=== PATIENT | female | born 1995 | race Asian ===

== ENCOUNTER → 2019-02-02 14:01 | Outpatient (CLI) | payer MEDICAID, SELFPAY ==
[2019-02-02 18:28] LABS: Chlamydia Trachomatis by PCR Negative (Negative); Neisserai gonorrhoeae by PCR Negative (Negative); Probe Check PASS; Sample Adequacy Control PASS; Specimen Processing Control PASS
[2019-02-06 16:57] LABS: HPV HC, High Risk Negative (Negative); HPV Reflexed? YES, CHARGE PATIENT
== END ==
PROVIDERS: Visit Provider Obstetrics & Gynecology
DX: Z12.4 Encounter for screening for malignant neoplasm of cervix (principal); Z11.3 Encounter for screening for infections with a predominantly sexual mode of transmission
CPT/HCPCS: 87491; 87591; 87624; 88175; G0145

== ENCOUNTER → 2019-02-23 14:22 | Outpatient (CLI) | payer MEDICAID, SELFPAY ==
[2017-09-21 03:43] VITALS: BMI 21.6
[2019-02-23 16:35] LABS: Color, Urine Yellow (Yellow); Glucose, Dipstick Normal (Normal); Ketone-Dipstick Negative (Negative); Leukocyte Esterase-Dipstick 500 /ul (Negative); Nitrite-Dipstick Negative (Negative); Occult Blood-Urine Negative /ul (Negative); Protein-Dipstick Negative (Negative); Specific Gravity, Urine 1.005 (1.002-1.030); Urine Bilirubin Dipstick Negative (Negative); Urine Clarity Clear (Clear); Urine Urobilinogen Normal (Normal)
[2019-02-23 16:39] LABS: Absolute Lymphocyte Count 1.98 X10^3/ul (0.83-4.51); Absolute Neutrophil Count 5.8 X10^3/uL (2.0-7.7); Basophil# 0.03 X10^3/uL; Basophil% 0.4 % (0-1); Eosinophil# 0.13 X10^3/uL; Eosinophils% 1.6 % (0-5); Hematocrit 39.3 % (37-47); Hemoglobin 13.3 g/dl (12.0-15.0); Lymphocyte # 1.98 X10^3/ul (4.0); Lymphocyte % 23.7 % (19-41); Mean Corp Hgb Conc 33.8 g/gl (32-36); Mean Corpuscular Hgb 31.1 pg (27.0-32.0); Mean Platelet Vol. 9.4 fl (6.2-12.0); Monocyte# 0.45 X10^3/uL; Monocyte% 5.4 % (0-10); Neutrophil # 5.76 X10^3/uL (2.7-7.7); Neutrophil % 68.8 % (47-70); Platelet Count 227 K/mm3 (150-450); RBC Distribution Width CV 13.4 % (11.6-14.6); RBC Distribution Width SD 44.3 fl (35.1-43.9); Red Blood Count 4.27 M/mm3 (4.2-5.4); White Blood Count 8.4 K/mm3 (4.4-11.0)
[2019-02-23 16:45] LABS: POSITIVE COUNT NO; POSITIVE DIFFERENTIAL NO; POSITIVE MORPHOLOGY NO
[2019-02-23 16:48] LABS: Thyroid Stim Hormone (TSH) 2.67 uIU/mL (0.358-3.74)
[2019-02-23 16:56] LABS: Amphetamine Urine VISTA NEGATIVE (<1000 ng/mL); Barbiturate Urine VISTA NEGATIVE (< 200 ng/mL); Benzodiazepine Urine VISTA NEGATIVE (< 200 ng/mL); Cocaine Urine VISTA NEGATIVE (< 300 ng/mL); Ecstacy Urine VISTA NEGATIVE (< 500 ng/mL); Methadone Urine VISTA NEGATIVE (< 300 ng/mL); PCP Urine VISTA NEGATIVE (< 25 ng/mL); THC Urine VISTA NEGATIVE (< 50 ng/mL); Vista UDS pH Range 7
[2019-02-23 17:28] LABS: HIV - WCH Non-Reactive (Nonreactive)
[2019-02-25 11:09] LABS: HEPATITIS B SURFACE AG Negative (Negative); Hep C Antibodies <0.1 s/co ratio (0.0-0.9)
[2019-02-27 02:51] LABS: Prenatal RPR NONREACTIVE (NONREACTIVE)
== END ==
PROVIDERS: Visit Provider Obstetrics & Gynecology
DX: Z34.81 Encounter for supervision of other normal pregnancy, first trimester (principal)
CPT/HCPCS: 36415; 80307; 81002; 84443; 85025; 86703; 86762; 86803; 87077; 87086; 87088; 87186; 87340

== ENCOUNTER → 2019-06-09 13:54 | Outpatient (CLI) | payer MEDICAID, SELFPAY ==
[2017-09-21 03:43] VITALS: BMI 21.6
[2019-06-09 15:02] LABS: Hematocrit 36.4 % (37-47); Hemoglobin 12.2 g/dL (12.0-15.0); Mean Corp Hgb Conc 33.5 g/dL (32-36); Mean Corpuscular Hgb 32.4 pg (27.0-32.0); Mean Corpuscular Volume 96.8 fL (81-99); Mean Platelet Vol. 9.2 fl (6.2-12.0); Platelet Count 209 K/mm3 (150-450); RBC Distribution Width CV 12.2 % (11.6-14.6); RBC Distribution Width SD 43.3 fl (35.1-43.9); Red Blood Count 3.76 M/mm3 (4.2-5.4); White Blood Count 8.9 K/mm3 (4.4-11.0)
[2019-06-09 17:54] LABS: Glucose Challenge Gest 1H 50g 170 mg/dL (70-140)
== END ==
PROVIDERS: Visit Provider Obstetrics & Gynecology
DX: Z34.83 Encounter for supervision of other normal pregnancy, third trimester (principal)
CPT/HCPCS: 36415; 82950; 85027

== ENCOUNTER → 2019-06-15 06:41 | Outpatient (CLI) | payer MEDICAID, SELFPAY ==
[2019-06-15 07:40] LABS: Glucose GTT-Gestation. Fasting 76 mg/dL (<105)
[2019-06-15 10:25] LABS: Glucose GTT-Gestational 1 Hr 108 mg/dL (<190)
[2019-06-15 10:26] LABS: Glucose GTT-Gestational 2 Hr 103 mg/dL (<165)
[2019-06-15 11:25] LABS: Glucose GTT-Gestational 3 Hr 87 L (<145)
== END ==
PROVIDERS: Referring Provider Obstetrics & Gynecology; Visit Provider Obstetrics & Gynecology
DX: O24.912 Unspecified diabetes mellitus in pregnancy, second trimester (principal); Z3A.00 Weeks of gestation of pregnancy not specified
CPT/HCPCS: 36415; 82951; 82952

== ENCOUNTER 2019-06-24 12:57 | Emergency (ER) | payer MEDICAID, SELFPAY ==
[2019-06-24 13:00] VITALS: BP 110/72; PULSE 69; RESP 16; TEMP 36.9; O2SAT 98
--- NOTE | 2019-06-24 13:23 | EKG12_ITS ---
Test Reason : SYNCOPE Blood Pressure : / mmHG Vent. Rate : 060 BPM Atrial Rate : 060 BPM P-R Int : 146 ms QRS Dur : 084 ms QT Int : 410 ms P-R-T Axes : 038 067 017 degrees QTc Int : 410 ms Normal sinus rhythm Normal ECG Confirmed by YELENA GALAVIZ ([id number]), assignment editor OSWALD BRAN ([id number]) on 06/29/2019 2:05:51 PM Referred By: Sandrita Estrada Confirmed By:YELENA GALAVIZ
[2019-06-24 13:32] LABS: Absolute Lymphocyte Count 1.51 X10^3/uL (0.83-4.51); Absolute Neutrophil Count 5.7 X10^3/uL (2.0-7.7); Basophil# 0.06 X10^3/uL; Basophil% 0.7 % (0-1); Eosinophil# 0.13 X10^3/uL; Eosinophils% 1.6 % (0-5); Hematocrit 36.1 % (37-47); Hemoglobin 12.2 g/dL (12.0-15.0); Lymphocyte # 1.51 X10^3/ul (4.0); Lymphocyte % 18.3 % (19-41); Mean Corp Hgb Conc 33.8 g/dL (32-36); Mean Corpuscular Hgb 32.9 pg (27.0-32.0); Mean Corpuscular Volume 97.3 fL (81-99); Mean Platelet Vol. 9.3 fl (6.2-12.0); Monocyte# 0.71 X10^3/uL; Monocyte% 8.6 % (0-10); NRBC Flagged by Analyzer 0 % (0-5); Neutrophil # 5.69 X10^3/uL (2.7-7.7); Neutrophil % 69.1 % (47-70); Platelet Count 241 K/mm3 (150-450); RBC Distribution Width CV 12.3 % (11.6-14.6); RBC Distribution Width SD 42.9 fl (35.1-43.9); Red Blood Count 3.71 M/mm3 (4.2-5.4); White Blood Count 8.2 K/mm3 (4.4-11.0)
[2019-06-24 13:44] LABS: Anion Gap 6 (5-15); BUN 9 mg/dL (7-18); BUN/Creat Ratio 18.3 RATIO (10-20); Calcium,Total 8.4 mg/dL (8.5-10.1); Chloride 107 mmol/L (98-107); Creatinine, Serum 0.49 mg/dL (0.55-1.02); EST Glomerular Filtration Rate 161 mL/min (>60); Est Glom Filt Rate - Afr Amer 195 mL/min (>60); Estimated Creatinine Clearance 145.76 ml/min; Glucose 87 mg/dL (74-106); Potassium 3.2 mmol/L (3.5-5.1); Sodium Level 138 mmol/L (136-145)
--- NOTE | 2019-06-24 13:55 | ED.DCSUM_ITS ---
- ER Visit Summary Date of Service: 06/24/19 Chief Complaint: Near syncope History of Present Illness: The patient is a [address] Estrada. She is a G3, P2 at 31 weeks. She reports that she had been standing for a few minutes and became lightheaded. She actually fell to the ground. However, she denies loss of consciousness. She denies any preceding chest pain, shortness of breath, or abdominal pain. Patient denies any injury from the falls. She does not have any trauma to her head or headache. She denies any neck or back pain. She does not believe that she hit her abdomen. Physical Examination: Vitals: Stable. Afebrile. Neck: No vertebral tenderness. Full ROM without difficulty. Cleared by NEXUS criteria. Back: No vertebral tenderness. General: A&O x 3. NAD. Cardiovascular exam: Regular rate and rhythm, no murmur, rub or gallop. Respiratory exam: Chest nontender. No crepitus. Clear to auscultation bilaterally. No wheezes or stridor. Abdominal exam: Soft, nontender, nondistended, normal bowel sounds. No pain in RUQ or LUQ specifically. No peritoneal signs. Gravid uterus. Extremity: Atraumatic. No pain with range of motion. Test Results: EKG is sinus at 60 with normal intervals. CBC shows hematocrit of 36.1 lymphocytes of 18. Chem-7 shows potassium 3.2, calcium 8.4, creatinine 0.59. UA is negative. Emergency Department Course and Treatment: Patient had negative orthostatic v ital signs. heart tone was 128. Bedside ultrasound shows good movement and heartbeat. Treatment Plan: The patient was discussed with Dr. Figueroa. She denies any blow to the abdomen, abdominal pain, or vaginal bleeding. She will be discharged instructions to follow-up with Dr. Estrada as previously scheduled. Return to the emergency department or labor and delivery for abdominal pain, vaginal bleeding, or any other concerns. Disposition: To home in improved and stable condition. Impression: 1. Near syncope. 2. Third trimester . This note was generated with [employer] software. It may contain incorrect words, spelling, and punctuation that were not noted in review of the chart prior to signing ED Disposition - Plan for ED Patient: Disposition: Home or Assisted Living Instructions: DIZZINESS OR SYNCOPE (Fainting) DURING Referrals: Sandrita Estrada MD [STAFF PHYSICIAN] - 1-2 Days if not improving
[2019-06-24 13:59] LABS: Bacteria 0 SEEN /hpf (None Seen); Mucous, Urine 0 SEEN /hpf (<or=2+); Red Blood Cells-Urine 0 SEEN /hpf (0-5)
[2019-06-24 14:02] LABS: Color, Urine Yellow (Yellow); Glucose, Dipstick 50 mg/dl (Normal); Ketone-Dipstick Negative (Negative); Leukocyte Esterase-Dipstick 25 /ul (Negative); Nitrite-Dipstick Negative (Negative); Occult Blood-Urine Negative /ul (Negative); Protein-Dipstick Negative (Negative); Urine Bilirubin Dipstick Negative (Negative); Urine Clarity Clear (Clear); Urine Urobilinogen Normal (Normal)
[2019-06-24] MEDS: 0.9% Normal Saline 1,000 ML 1000 ML IV (14:02)
[2019-06-24 14:03] VITALS: BP 100/67; BP 104/67; BP 99/60; PULSE 61; PULSE 68; PULSE 74
[2019-06-24 14:11] LABS: Squamous Epithelial Cells - UA 0-5 SEEN /hpf (5-10); White Blood Cells 0-5 SEEN /hpf (0-5)
[2019-06-24 14:47] VITALS: BP 103/49; PULSE 62; RESP 16; O2SAT 98
[2019-06-24 15:23] VITALS: BP 103/49; PULSE 60; RESP 18; O2SAT 98
[2019-06-24 15:35] VITALS: BP 103/49; PULSE 58; RESP 18
== END 2019-06-24 15:36 | disposition home or self-care (01) ==
LOC: ED 13:30
PROVIDERS: Emergency Provider Emergency Medicine
DX: O99.89 Other specified diseases and conditions complicating pregnancy, childbirth and the puerperium (principal); R55 Syncope and collapse; Z3A.31 31 weeks gestation of pregnancy
CPT/HCPCS: 80048; 81001; 85025; 93005; 96360; 99285; J7030

== ENCOUNTER → 2019-07-27 13:56 | Outpatient (CLI) | payer MEDICAID, SELFPAY | PROVIDERS: Visit Provider Obstetrics & Gynecology | DX: Z36.85 Encounter for antenatal screening for Streptococcus B (principal) | CPT/HCPCS: 87077; 87081; 87186 ==

== ENCOUNTER 2019-08-15 20:35 | Inpatient (IN) | payer MEDICAID, SELFPAY ==
[2019-08-15] MEDS: Lactated Ringers 500 ML 999 ML IV (20:55)
[2019-08-15 20:59] VITALS: BMI 22.6
[2019-08-15 21:14] LABS: Absolute Lymphocyte Count 1.61 X10^3/uL (0.83-4.51); Absolute Neutrophil Count 8.6 X10^3/uL (2.0-7.7); Basophil# 0.06 X10^3/uL; Basophil% 0.5 % (0-1); Eosinophils% 1.7 % (0-5); Hematocrit 40.7 % (37-47); Lymphocyte # 1.61 X10^3/ul (4.0); Mean Corp Hgb Conc 34.4 g/dL (32-36); Mean Corpuscular Hgb 33.4 pg (27.0-32.0); Mean Corpuscular Volume 97.1 fL (81-99); Mean Platelet Vol. 9.3 fl (6.2-12.0); Monocyte# 0.99 X10^3/uL; Monocyte% 8.6 % (0-10); NRBC Flagged by Analyzer 0 % (0-5); Neutrophil # 8.55 X10^3/uL (2.7-7.7); Neutrophil % 74.4 % (47-70); Platelet Count 210 K/mm3 (150-450); RBC Distribution Width CV 12.8 % (11.6-14.6); RBC Distribution Width SD 45.7 fl (35.1-43.9); Red Blood Count 4.19 M/mm3 (4.2-5.4); White Blood Count 11.5 K/mm3 (4.4-11.0)
[2019-08-15] MEDS: Lactated Ringers 1,000 ML 200 ML IV (21:26)
[2019-08-15] MEDS: Oxytocin 30 units/NS 500 ml 30 UNITS/500 ML IV.SOLN 334 UNITS IV (21:39)
[2019-08-15] MEDS: 0.9% Saline Lock 10 ML Syringe IV (21:52)
[2019-08-15] MEDS: Ketorolac 30 MG/ML Syringe IV (21:52)
--- NOTE | 2019-08-15 22:04 | PCM.HPOB.BLA ---
History and Physical Date of Admission: 08/15/19 OB HISTORY AND PHYSICAL EXAMINATION History of this : 24 yo female Ab0 with EDC 08/22/2019 by Ultrasound, presents to Labor and Delivery in labor at 8 cm with BBOW. at 39 wk EGA care remarkable for : B positive Rubella immune GBS positive. 1.) ABNORMAL GLUCOLA, 170 normal 3 hr GTT 2.) ASCUS PAP NEG HPV SURGICAL HISTORY: 1. 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 Allergies: No Known Drug Allergies Medications: During - 28 mg-800 mcg tablet; 28 mg-800 mcg tablet Review of Systems: Painful contractions starting at 7 pm PHYSICAL EXAMINATION General Appearance: 24 yo female very uncomfortable w/ contractions Vital Signs: AF, VSS Lungs: breathing heavily through UCs Breasts: deferred Abdomen: gravid Pelvis: Adequate. Cervix: 8 cm/90/-1 AROM light meconium. Presentation: cephalic Size: AGA Movement: present Heart: category I tracing with contractions Impression /Plan: Intrauterine . 39 wk EGA Admitted in active labor. GBS positive. inadequate time for prophylaxis AROM light meconium. Peds and respiratory therapy called for delivery. H and P generated at time of patient admission Hermilo Estrada MD 08/15/19 2200
--- NOTE | 2019-08-15 22:12 | PCM.OPRPT ---
Vaginal Delivery Maternal Presentation: Active Labor 39 wk labor. Amniotic Membrane Rupture Type: Artificial Amniotic Fluid Description: Lightly stained meconium Final MARYANNE: 08/22/19 Final MARYANNE Source: US <20 weeks Gestational age: 39 Weeks and 0 Days [place] doctor who attended delivery (if requested by OB): Nancy Ulloa Date of Procedure: 08/15/19 Pre-Operative Diagnosis: 39 wk labor, precipitous Post-Operative Diagnosis: same Surgery/ Procedure Performed: Spontaneous Vaginal Delivery Type of Anesthesia: None Description of Procedure: of a foss viable male over lacerations. Head delivered OA No nuchal cord. Shoulders delivered easily. Infant to maternal abdomen with spontaneous vigorous cry. OP and nares bulb suctioned. Cord clamped times two and cut. PP exam 2nd deg laceration repaired to hemostatic and intact with 3-0 vicryl suture. Placenta delivered by spontaneous expulsion, expression. 3V normal appearing and intact with trailing membranes. EBL 300 cc Pt and infant tolerated delivery well. to recovery, stable condition Ray imer and needle counts correct times two. Presentation: Vertex Placental Delivery Description: Spontaneous, Expressed Placenta Disposition: [facility] Cord Vessel Description: 3 Vessels Cord Entanglement: None Estimated Blood Loss: 300 A gender: Male (1 minute): 8 (5 minute): 9 Episiotomy Description: None Laceration: Midline, Perineal Extension/lac, 2nd degree Medications given after delivery: IV Pitocin Complications: None
[2019-08-16] VITALS (11 sets, daily range): BP systolic 94–117; BP diastolic 52–72; PULSE 61–93; RESP 16–18; TEMP 36.6–37.5; O2SAT 98
[2019-08-16] MEDS: 0.9% Saline Lock 10 ML Syringe IV (00:09)
--- NOTE | 2019-08-16 02:00 | NURSING ---
0110-assist pt up to br since fundus to rt and 1+. ambulated well but slow. was able to void 300cc. pt stood at commode and communicated to dad that she was feeling dizzy, therefore assisted back onto commode and pt became limp. smelling salts used and pt responded. two nurses placed pt in wheel chair and then back into bed. bleeding stable. fundus now u-1, bleeding stable. pt responding appropriately with questions asked. instructed that pt not to get out of bed without nursing assistance. bp stable. 0141-called dr traylor made aware of pt becoming limp when up to br and smelling salts used with pt bp and bleeding stable. order received for cbc to be drawn this am. will continue to monitor pt.
[2019-08-16 05:35] LABS: Hematocrit 39.8 % (37-47); Hemoglobin 13.6 g/dL (12.0-15.0); Mean Corp Hgb Conc 34.2 g/dL (32-36); Mean Corpuscular Hgb 32.6 pg (27.0-32.0); Mean Corpuscular Volume 95.4 fL (81-99); Mean Platelet Vol. 9.2 fl (6.2-12.0); Platelet Count 200 K/mm3 (150-450); RBC Distribution Width CV 12.8 % (11.6-14.6); RBC Distribution Width SD 44.9 fl (35.1-43.9); Red Blood Count 4.17 M/mm3 (4.2-5.4); White Blood Count 15.7 K/mm3 (4.4-11.0)
--- NOTE | 2019-08-16 07:49 | PN.OBGYN_ITS ---
Subjective: PPD#1 Doing OK. This was her largest baby, over 7# and others 6# 4 oz, 6# 7 oz. Sore but manageable. Passed out last night, but no further issues. - Physical Exam General: Alert, Oriented x3, Cooperative, No apparent distress HEENT: Atraumatic, EOMI Neck: Supple Abdomen: Soft - Fundus firm NT at umbilicus Neurological: Cranial nerves II-XII grossly intact Psych/Mental Status: Normal Affect Vital Signs Temp Pulse Resp BP 99.5 F H 93 16 102/55 L 08/16/19 03:37 08/16/19 03:37 08/16/19 03:37 08/16/19 03:37 Weight: 59.8 kg Body Mass Index (BMI) 22.6 Intake and Output for Last 24 Hours 08/14/19 08/15/19 08/16/19 23:59 23:59 23:59 Intake Total 710.33 / 710.33 333 / 333 Output Total 300 / 300 Balance 710.33 / 710.33 33 / 33 Laboratory Tests Past 24 Hrs 08/15/19 08/15/19 08/16/19 20:50 20:50 05:25 WBC 11.5 H 15.7 H RBC 4.19 L 4.17 L Hgb 14.0 13.6 Hct 40.7 39.8 MCV 97.1 95.4 MCH 33.4 H 32.6 H MCHC 34.4 34.2 RDW Std Deviation 45.7 H 44.9 H RDW Coeff of Matty 12.8 12.8 Plt Count 210 200 MPV 9.3 9.2 Immature Gran % (Auto) 0.800 Neut % (Auto) 74.4 H Lymph % (Auto) 14.0 L [place] % (Auto) 8.6 Eos % (Auto) 1.7 Baso % (Auto) 0.5 Absolute Neuts (auto) 8.6 H Absolute Lymphs (auto) 1.61 Nucleated RBC % 0 Blood Type B POSITIVE Antibody Screen NEGATIVE Medical Necessity - Tobacco Use Smoking Status: Never smoker Assessment/Plan PPD#1 Stable pp. Continue routine care. Would like to go home today if baby is released. Delivered at 9:30 pm. 24 hr labs for baby would be due late tonight and advised of this. Consider continued stay to PPD#2.
--- NOTE | 2019-08-16 12:39 | DCINST_ITS ---
Discharge Diet: No Restrictions Discharge Activity: May Shower, May Take a Tub Bath May resume sexual activity in: 4-6 weeks Additional Activity Instructions:: Nothing in the vagina for 4-6 weeks. You may return to work/school in 6 weeks. Additional Instructions: If you experience any of the following, contact your healthcare provider. * Bleeding that soaks a pad every hour for 2 hours * Fever 100.4 or higher * Unrelieved abdominal pain * Problems urinating (including inability to urinate or burning while urinating). * Visual changes * Severe headache * Flu-like symptoms * Pain or redness in one of both of your breasts * Pain, warmth, tenderness or swelling in your legs, especially the calf area * Frequent nausea and vomiting * Symptoms of depression or anxiety If you experience any of the following, call 911 or go to the nearest Emergency Room. * Chest pain * Problems breathing * Seizure activity * Partial or complete paralysis of a body part, slurred speech, weakness or drooping of the face, or a sudden inability to walk or hold your balance Allergies/Adverse Reactions: Allergies No Known Allergies Allergy (Verified 08/15/19 20:59) Medications to take at Discharge Vits [Prenatabs FA ] 1 tablet PO DAILY 11/30/15 Docusate Sodium [Colace] 100 mg PO BID #30 cap 08/16/19 Ibuprofen [Motrin] 600 mg PO Q6H PRN PRN #20 tab 08/16/19 The following prescriptions were given: Docusate Sodium [Colace] 100 mg PO BID #30 cap Transmission Status: Pending to [id number] Ibuprofen [Motrin] 600 mg PO Q6H PRN PRN #20 tab PRN Reason: Pain Score 1-3/10 Transmission Status: Pending to [facility] Please Follow Up With: Sandrita Estrada MD - [phone] When: Call to make an appointment with your doctor in 6 weeks. Primary Care Physician: Care Physician,No Primary [Primary Care Provider] - Test Results: Test results from this visit will be discussed in further detail at your follow- up appointment, if applicable.
[2019-08-16] MEDS: Prenatal Vits Tablet 1 TABLET PO (14:34)
[2019-08-16] MEDS: Docusate Sodium 100 MG Capsule PO ×2 (14:34→21:40)
[2019-08-16] MEDS: Ibuprofen 600 MG Tablet PO (15:40)
[2019-08-17 02:33] VITALS: BP 98/43; PULSE 62; RESP 16; TEMP 37.2; O2SAT 98
[2019-08-17] MEDS: Ibuprofen 600 MG Tablet PO (03:20)
[2019-08-17 08:05] VITALS: BP 90/45; PULSE 62; RESP 14; TEMP 36.5
--- NOTE | 2019-08-17 08:16 | PCM.PN.OB ---
Subjective: PPD#2 Doing well. Bottle feeding. No concerns voiced. Objective: Up tending to baby, changing diaper - Physical Exam General: Alert, Oriented x3, Cooperative, No apparent distress HEENT: Atraumatic, EOMI Neck: Supple Psych/Mental Status: Normal Affect Vital Signs Temp Pulse Resp BP Pulse Ox 99.0 F 62 16 98/43 L 98 08/17/19 02:33 08/17/19 02:33 08/17/19 02:33 08/17/19 02:33 08/17/19 02:33 Oxygen Delivery Method Room Air Weight: 59.8 kg Body Mass Index (BMI) 22.6 Intake and Output for Last 24 Hours 08/15/19 08/16/19 08/17/19 23:59 23:59 23:59 Intake Total 710.33 / 710.33 333 / 333 Output Total 300 / 300 Balance 710.33 / 710.33 33 / 33 Medical Necessity - Tobacco Use Smoking Status: Never smoker Assessment/Plan PPD#2 Stable pp. Dischg home today. RTO in 6 wk for check.
--- NOTE | 2019-08-17 09:32 | NURSING ---
pt with consistent low bps, denies any symtoms of dizziness or weakness
== END 2019-08-17 11:55 | disposition home or self-care (01) | DRG 560 ==
PROVIDERS: Admitting Provider Obstetrics & Gynecology; Referring Provider Obstetrics & Gynecology; Visit Provider Obstetrics & Gynecology
DX: O62.3 Precipitate labor (principal); O70.1 Second degree perineal laceration during delivery; O77.0 Labor and delivery complicated by meconium in amniotic fluid; O99.824 Streptococcus B carrier state complicating childbirth; Z3A.39 39 weeks gestation of pregnancy; Z37.0 Single live birth
CPT/HCPCS: 59025; 59050; 85025; 85027; 86850; 86900; 86901; 99218; J7120; A4216; G0378

== ENCOUNTER → 2020-10-04 | Outpatient (CLI) | payer MEDICAID, SELFPAY ==
[2020-10-07 09:50] LABS: HPV Reflexed? NOT INDICATED
== END | disposition home or self-care (01) ==
PROVIDERS: Visit Provider Student in an Organized Health Care Education/Training Program
DX: Z12.4 Encounter for screening for malignant neoplasm of cervix (principal)
CPT/HCPCS: 88175; G0145

== ENCOUNTER → 2020-10-10 13:51 | Outpatient (CLI) | payer MEDICAID, SELFPAY ==
--- NOTE | 2020-10-10 13:54 | BI_ITS ---
MAMMOGRAPHY - BILATERAL DIAGNOSTIC REASON FOR EXAM: Female, 25 years old. Right breast lump. PERTINENT HISTORY: TECHNIQUE: Digital bilateral breast alyssia (3D mammographic acquisition) in the CC and MLO projections. 2-D mediolateral oblique (MLO) and craniocaudad (CC) views of both breasts were obtained. CAD: Full Field Digital Mammography with Computer Added Detection was performed. COMPARISON: None. Baseline examination. FINDINGS: Breast Composition: The breasts are extremely dense, which lowers the sensitivity of mammography. There are no dominant masses or suspicious calcifications. No other significant abnormalities are identified. BI/DIAG MAMM W/CAD, BILAT IMPRESSION: Negative diagnostic mammogram. With the patient''s history of a palpable lump in the right breast, correlation with ultrasound is recommended. ASSESSMENT CATEGORY: BIRADS Category 0: Incomplete. Need additional imaging evaluation. A letter regarding these results will be sent to the patient by the facility within 30 days. Approximately 10% of breast cancers are not detected by mammography. A normal mammogram should not delay biopsy of a clinically suspicious abnormality. Electronically Signed: Nicholas Okeefe, at 15:31 EST , Service support ,
--- NOTE | 2020-10-10 13:54 | US_ITS ---
STUDY: ULTRASOUND BREAST - RIGHT REASON FOR EXAM: Female, 25 years old. Palpable lump in the right breast. TECHNIQUE: Axial and longitudinal images of the RIGHT breast were performed with a high resolution ultrasound transducer. # OF IMAGES: 25 COMPARISON: Comparison is made with the prior ultrasound of the right breast dated 04/23/2016. FINDINGS: RIGHT Breast: The palpable abnormality corresponds to a slightly lobular well-circumscribed hypoechoic solid nodule at the 9 o''clock position of the breast at 1 cm from the nipple. This measures 1.1 cm x 1.5 cm x 0.5 cm. This has decreased in size as compared to prior study. US/Breast Limited Unilateral IMPRESSION: Slight decrease in size of the 1.1 cm x 1.5 cm x 0.5 cm hypoechoic solid nodule at the 9 o''clock position of the breast at 1 cm from the nipple. ASSESSMENT CATEGORY: BIRADS Category 2: Benign. A letter regarding these results will be sent to the patient by the facility within 30 days. Electronically Signed: Nicholas Okeefe, at 15:29 EST , Service support ,
== END ==
PROVIDERS: Referring Provider Student in an Organized Health Care Education/Training Program; Visit Provider Student in an Organized Health Care Education/Training Program
DX: N63.10 Unspecified lump in the right breast, unspecified quadrant (principal)
CPT/HCPCS: 76642; 77062; 77066; G0279

== ENCOUNTER 2021-11-27 16:28 | Emergency (ER) | payer MEDICAID, SELFPAY ==
[2021-11-27 16:29] VITALS: BP 102/36; PULSE 69; RESP 14; TEMP 36.2; O2SAT 100; BMI 16.6
--- NOTE | 2021-11-27 17:52 | EX.ED.DYSGE1 ---
HPI History of Present Illness Chief Complaint: Abd Pain Informant: patient Onset/Context/Timing Onset: Days (3 days) Context: Gradual Onset Timing: Waxes and wanes Narrative Narrative: Patient presents with 3 days of epigastric abdominal pain. She reports nausea but no vomiting. No diarrhea. No fever or chills. Pain is slightly worse when she eats. She states she will sometimes get this pain and take Nexium which resolves the issue. She is taking Nexium the last 3 days but continues to have the pain. PFSH PFSH Medical History no medical history no medical history Home Medications esomeprazole magnesium [Nexium 24HR] 20 mg PO DAILY 11/27/21 [History Last Taken Unknown] Allergy/AdvReac Type Severity Reaction Status Date / Time No Known Allergies Allergy Verified 11/27/21 16:30 Social History Smoking Status: Never smoker ROS ROS ED Constitutional Constitutional ED: Denies chills or fever(s) Eyes Eyes: Denies change in vision ENT ENT ED: Denies sore throat Cardiovascular Cardiovascular: Denies chest pain Respiratory/Chest Respiratory/Chest: Denies cough or dyspnea Gastrointestinal Gastrointestinal: Reports abdominal pain and nausea; Denies diarrhea or vomiting Genitourinary Genitourinary ED: Denies dysuria Musculoskeletal Musculoskeletal: Denies back pain Integumentary Denies rash Neurologic Neurologic: Denies headache(s) or weakness Allergic/Immunologic Allergic/Immunologic ED: Denies urticaria EXAM Physical Exam Const Vital Signs: 11/27/21 16:29 Temperature 97.1 F L Temperature Source Temporal Pulse Rate 69 Respiratory Rate 14 Blood Pressure 102/36 L Blood Pressure Mean 58 Pulse Ox 100 Oxygen Delivery Method Room Air Positive well nourished and well developed General Appearance ED: well developed HEENT Reports normocephalic and head/scalp atraumatic Eyes PERRL and EOMs intact bilaterally Neck supple Chest Wall inspection of chest normal and palpation of chest normal Resp normal respiratory effort and clear to auscultation bilaterally Cardio regular rate and regular rhythm GI GI Narrative: Tenderness in the epigastrium. Very mild tenderness in the right upper quadrant. No guarding or rebound. Palpation: soft and tender epigastric Extremity normal to inspection Neuro oriented x3 and no sensory deficits noted Sensorium / Orientation: alert Motor Exam: strength 5/5 throughout Psych mental status grossly normal Skin no rashes or lesions noted MDM MDM MDM Narrative Medical decision making narrative: Patient given GI cocktail. Lab work obtained. Lab Data Attestation: I reviewed the patient's lab results. Labs: Laboratory Results - last 24 hr 11/27/21 11/27/21 11/27/21 18:00 18:00 18:00 WBC 5.9 RBC 4.40 Hgb 12.8 Hct 39.7 MCV 90.2 MCH 29.1 MCHC 32.2 RDW Std Deviation 45.8 H RDW Coeff of Matty 13.8 Plt Count 325 MPV 10.1 Immature Gran % (Auto) 0.200 Neut % (Auto) 60.8 Lymph % (Auto) 29.2 [place] % (Auto) 6.3 Eos % (Auto) 2.7 Baso % (Auto) 0.8 Absolute Neuts (auto) 3.6 Absolute Lymphs (auto) 1.73 Nucleated RBC % 0 Sodium 139 Potassium 3.4 L Chloride 106 Carbon Dioxide 30.0 Anion Gap 3 L BUN 8 Creatinine 0.72 Estim Creat Clear Calc 80.80 Est GFR (MDRD) Af Amer 124 Est GFR (MDRD) Non-Af 102 BUN/Creatinine Ratio 11.1 Glucose 78 Calcium 8.7 Total Bilirubin 0.30 Direct Bilirubin 0.09 AST 33 ALT 27 Alkaline Phosphatase 48 Total Protein 8.1 Albumin 3.7 Globulin 4.4 H Lipase 110 Serum , Qual NEGATIVE Treatment and Re-Evaluation Comments:: Lab work unremarkable with normal LFTs and lipase. On repeat evaluation patient states her abdominal pain is resolved after the GI cocktail. She is advised to continue taking the Nexium every day for the next 2 weeks. She is to follow-up with her primary care physician if not improving. She voices understanding and agreement. Discharge Plan Triage Chief Complaint: Abd Pain ED Provider: Kelsea Hewitt Dx/Rx/DC Orders Clinical Impression: Gastritis Instructions: ED Gastritis (Adult) Prescriptions: No Action esomeprazole magnesium [Nexium 24HR] 20 mg Capsule,Delayed Release(Dr/Ec) 20 mg PO DAILY RF: 0 Primary Care Provider: Care Physician,No Primary Referrals: Care Physician,No Primary [Primary Care Provider] - Activity Restrictions/Additional Instructions: Follow-up with your doctor in 2 weeks. Disposition Disposition: Home, Self Care
[2021-11-27] MEDS: Mag Hydrox/Al Hydrox/Simeth 30 ML UDC PO (18:10)
[2021-11-27 18:22] LABS: Absolute Lymphocyte Count 1.73 X10^3/uL (0.83-4.51); Absolute Neutrophil Count 3.6 X10^3/uL (2.0-7.7); Basophil# 0.05 X10^3/uL; Basophil% 0.8 % (0-1); Eosinophil# 0.16 X10^3/uL; Eosinophils% 2.7 % (0-5); Hematocrit 39.7 % (37-47); Hemoglobin 12.8 g/dL (12.0-15.0); Lymphocyte # 1.73 X10^3/ul (0.83-4.51); Lymphocyte % 29.2 % (19-41); Mean Corp Hgb Conc 32.2 g/dL (32-36); Mean Corpuscular Hgb 29.1 pg (27.0-32.0); Mean Corpuscular Volume 90.2 fL (81-99); Mean Platelet Vol. 10.1 fl (6.2-12.0); Monocyte# 0.37 X10^3/uL; Monocyte% 6.3 % (0-10); NRBC Flagged by Analyzer 0 % (0-5); Neutrophil % 60.8 % (47-70); Platelet Count 325 K/mm3 (150-450); RBC Distribution Width CV 13.8 % (11.6-14.6); RBC Distribution Width SD 45.8 fl (35.1-43.9); White Blood Count 5.9 K/mm3 (4.4-11.0)
[2021-11-27 18:35] LABS: AST(SGOT) 33 U/L (15-37); Alanine Aminotransfer ALT/SGPT 27 U/L (13-56); Albumin, Serum 3.7 g/dL (3.2-5.0); Alkaline Phosphatase 48 U/L (45-117); Anion Gap 3 (5-15); BUN 8 mg/dL (7-18); BUN/Creat Ratio 11.1 RATIO (10-20); Bilirubin, Direct 0.09 mg/dL (0.00-0.30); Calcium,Total 8.7 mg/dL (8.5-10.1); Chloride 106 mmol/L (98-107); Creatinine, Serum 0.72 mg/dL (0.55-1.02); EST Glomerular Filtration Rate 102 mL/min (>60); Est Glom Filt Rate - Afr Amer 124 mL/min (>60); Globulin 4.4 g/dL (2.2-4.2); Glucose 78 mg/dL (74-106); Lipase 110 U/L (73-393); Potassium 3.4 mmol/L (3.5-5.1); Protein, Total 8.1 g/dL (6.4-8.2); Sodium Level 139 mmol/L (136-145)
[2021-11-27 18:57] LABS: Internal QC Validated? YES +Cl - CLEAR BKGD; Pregnancy, Serum, hCG Quali. NEGATIVE Negative
== END 2021-11-27 19:27 | disposition home or self-care (01) ==
PROVIDERS: Emergency Provider Emergency Medicine; Visit Provider Emergency Medicine
DX: K29.70 Gastritis, unspecified, without bleeding (principal); Z79.899 Other long term (current) drug therapy
CPT/HCPCS: 80048; 80076; 83690; 84703; 85025; 99283; A4216

== ENCOUNTER → 2023-03-15 | Outpatient (CLI) | payer MEDICAID, SELFPAY ==
[2023-03-15 12:28] LABS: Erythrocyte Sedimentation Rate 8 mm/hr (0-30)
[2023-03-15 12:30] LABS: Absolute Lymphocyte Count 1.51 X10^3/uL (0.83-4.51); Absolute Neutrophil Count 2.3 X10^3/uL (2.0-7.7); Basophil# 0.07 X10^3/uL; Basophil% 1.5 % (0-1); Eosinophil# 0.38 X10^3/uL; Eosinophils% 8.3 % (0-5); Hemoglobin 13.3 g/dL (12.0-15.0); Lymphocyte # 1.51 X10^3/ul (0.83-4.51); Mean Corp Hgb Conc 31.7 g/dL (32-36); Mean Corpuscular Hgb 29.5 pg (27.0-32.0); Mean Corpuscular Volume 93.1 fL (81-99); Mean Platelet Vol. 9.4 fl (6.2-12.0); Monocyte# 0.33 X10^3/uL; Monocyte% 7.2 % (0-10); NRBC Flagged by Analyzer 0 % (0-5); Neutrophil # 2.27 X10^3/uL (2.7-7.7); Neutrophil % 49.8 % (47-70); Platelet Count 270 K/mm3 (150-450); RBC Distribution Width CV 15.8 % (11.6-14.6); RBC Distribution Width SD 54.3 fl (35.1-43.9); Red Blood Count 4.51 M/mm3 (4.2-5.4); White Blood Count 4.6 K/mm3 (4.4-11.0)
[2023-03-15 13:03] LABS: ALB/GLOB Ratio 0.9 RATIO (0.9-2.4); AST(SGOT) 16 U/L (15-37); Alanine Aminotransfer ALT/SGPT 24 U/L (13-56); Albumin, Serum 3.7 g/dL (3.2-5.0); Alkaline Phosphatase 54 U/L (45-117); Anion Gap 4 (5-15); BUN 10 mg/dL (7-18); BUN/Creat Ratio 16.1 RATIO (10-20); CRP < 2.90 mg/L (0.0-3.0); Calcium,Total 8.9 mg/dL (8.5-10.1); Chloride 107 mmol/L (98-107); Creatinine, Serum 0.62 mg/dL (0.55-1.02); EST Glomerular Filtration Rate 120 mL/min (>60); Est Glom Filt Rate - Afr Amer 145 mL/min (>60); Globulin 4.3 g/dL (2.2-4.2); Glucose 75 mg/dL (74-106); LDH 144 U/L (84-246); Potassium 3.5 mmol/L (3.5-5.1); Sodium Level 139 mmol/L (136-145)
[2023-03-18 13:07] LABS: Anti-Centromere B Ab <0.2 AI (0.0-0.9); Anti-Chromatin <0.2 AI (0.0-0.9); Anti-Jo <0.2 AI (0.0-0.9); Anti-Scleroderma-70 AB <0.2 AI (0.0-0.9); Anti-dsDNA Ab 3 IU/mL (0-9); RNP Ab 0.6 AI (0.0-0.9); SJOGREN'S Anti-SS-A test < 0.2 AI (0.0-0.9); SJOGREN'S Anti-SS-B test < 0.2 AI (0.0-0.9); Smith Ab <0.2 AI (0.0-0.9)
[2023-03-18 14:08] LABS: Endomysial Antibody IgA Negative (Negative); Immunoglobulin A 242 mg/dL (87-352); t-Transglutaminase IgA <2 U/mL (0-3)
[2023-03-21 16:09] LABS: Albumin 3.3 g/dL (2.9-4.4); Alpha-1-Globulins 0.3 g/dL (0.0-0.4); Alpha-2-Globulins 0.8 g/dL (0.4-1.0); Cytoplasmic Ab (C-ANCA) <1:20 titer (Neg:<1:20); Gamma Globulin 1.7 g/dL (0.4-1.8); Immunoglobulin A 227 mg/dL (87-352); Immunoglobulin E 24 IU/mL (6-495); Immunoglobulin G 1389 mg/dL (586-1602); Immunoglobulin M 299 mg/dL (26-217); PROEL- TOTAL PROTEIN 7.1 g/dL (6.0-8.5); Perinuclear Ab (P-ANCA) <1:20 titer (Neg:<1:20)
== END | disposition home or self-care (01) ==
LOC: LAB 12:02
PROVIDERS: PCP Family Medicine; Referring Provider Internal Medicine Gastroenterology; Visit Provider Internal Medicine Gastroenterology
DX: R10.9 Unspecified abdominal pain (principal)
CPT/HCPCS: 36415; 80053; 82784; 82785; 83516; 83615; 84165; 85025; 85652; 86140; 86225; 86235; 86255; 86256; 86334

== ENCOUNTER → 2023-03-18 | Outpatient (CLI) | payer MEDICAID, SELFPAY ==
[2023-03-21 11:09] LABS: H. PYLORI STOOL AG Positive (Negative)
== END | disposition home or self-care (01) ==
LOC: LABSPEC 15:28
PROVIDERS: PCP Family Medicine; Referring Provider Internal Medicine Gastroenterology; Visit Provider Internal Medicine Gastroenterology
DX: R10.9 Unspecified abdominal pain (principal)
CPT/HCPCS: 87338

== ENCOUNTER → 2023-03-29 | Outpatient (CLI) | payer MEDICAID, SELFPAY ==
[2023-03-29 15:00] LABS: Absolute Lymphocyte Count 1.52 X10^3/uL (0.83-4.51); Absolute Neutrophil Count 2.3 X10^3/uL (2.0-7.7); Basophil# 0.06 X10^3/uL; Basophil% 1.3 % (0-1); Eosinophil# 0.41 X10^3/uL; Eosinophils% 8.7 % (0-5); Hematocrit 40.2 % (37-47); Hemoglobin 12.8 g/dL (12.0-15.0); Lymphocyte # 1.52 X10^3/ul (0.83-4.51); Lymphocyte % 32.1 % (19-41); Mean Corp Hgb Conc 31.8 g/dL (32-36); Mean Corpuscular Volume 94.1 fL (81-99); Mean Platelet Vol. 9.6 fl (6.2-12.0); Monocyte# 0.39 X10^3/uL; Monocyte% 8.2 % (0-10); NRBC Flagged by Analyzer 0 % (0-5); Neutrophil # 2.34 X10^3/uL (2.7-7.7); Neutrophil % 49.5 % (47-70); Platelet Count 270 K/mm3 (150-450); RBC Distribution Width CV 15.3 % (11.6-14.6); RBC Distribution Width SD 53.1 fl (35.1-43.9); Red Blood Count 4.27 M/mm3 (4.2-5.4); White Blood Count 4.7 K/mm3 (4.4-11.0)
[2023-03-29 15:50] LABS: Estradiol 47.5 pg/mL; Follicle Stimulating Hormone 4.9 mIU/mL; Luteinizing Hormone 6.9 mIU/mL; Prolactin 7.4 ng/mL; T4 Free Direct 1.04 ng/dL (0.76-1.46)
== END | disposition home or self-care (01) ==
LOC: WOBLAB 14:09
PROVIDERS: PCP Family Medicine; Visit Provider Nurse Practitioner Women's Health
DX: N39.0 Urinary tract infection, site not specified (principal)
CPT/HCPCS: 36415; 82670; 83001; 83002; 84146; 84439; 84443; 85025; 87086

== ENCOUNTER → 2023-04-02 | Outpatient (CLI) | payer MEDICAID, SELFPAY ==
--- NOTE | 2023-04-02 09:00 | US_ITS ---
INDICATION: abdominal pain EXAMINATION: Ultrasound US Abdomen Complete TECHNIQUE: Velazquez-scale and color Doppler imaging was performed of the abdomen. COMPARISON: None. FINDINGS: LIVER: There is normal echotexture. No focal hepatic lesion. No intrahepatic biliary ductal dilatation. There is no free fluid. GALLBLADDER AND BILIARY TREE: No shadowing gallstone, pericholecystic fluid or gallbladder wall thickening is demonstrated. The proximal common bile duct measures 2.6 mm, which is within normal limits for the patient''s age. SONOGRAPHIC RUSHING''S SIGN: Negative. PANCREAS: No focal abnormality is demonstrated in the pancreas. No pancreatic ductal dilatation. SPLEEN: The spleen is normal in size and homogeneous in echotexture. KIDNEYS: There is no hydronephrosis. No shadowing calculus, focal lesion, or perinephric collection is demonstrated. VESSELS: Submitted longitudinal images of the intra-abdominal aorta demonstrate no gross abnormalities and are unremarkable. The IVC is patent. US/Abdomen Complete IMPRESSION: No acute sonographic abnormality is demonstrated in the abdomen. Electronically Signed: Mer Darby MD at 10:05 EDT ,
== END | disposition home or self-care (01) ==
LOC: US 08:59
PROVIDERS: PCP Family Medicine; Referring Provider Internal Medicine Gastroenterology; Visit Provider Internal Medicine Gastroenterology
DX: R10.9 Unspecified abdominal pain (principal)
CPT/HCPCS: 76700

== ENCOUNTER → 2023-04-03 | Outpatient (CLI) | payer MEDICAID, SELFPAY ==
--- NOTE | 2023-04-03 12:16 | NM_ITS ---
CLINICAL: 28-year-old female with history of abdominal pain. SEMI-SOLID PHASE 99m Tc SULFUR COLLOID GASTRIC EMPTYING STUDY COMPARISON: Abdominal ultrasound report 04/02/2023 FINDINGS: The patient was administered 1.1 mCi of 99m Tc sulfur colloid mixed with oatmeal and consumed per os. Image acquisitions in the anterior-posterior projections were obtained for 60 minutes. There is prompt visualization of the stomach. There is no gastroesophageal reflux identified. The T ? raw data emptying was calculated to be 38.22 minutes, (Normal: 12-56 minutes). NM/Gastric Emptying Study IMPRESSION: 1. NORMAL 99m Tc sulfur colloid semi-solid phase (oatmeal) gastric emptying imaging examination. A. There is normal and preserved semi-solid phase gastric emptying compared to normal controls. (Merry et al, J Nucl Med Tech 38: 186, 2010). Electronically Signed: Nahid Martin, at 22:18 EDT ,
== END | disposition home or self-care (01) ==
LOC: NM 12:16
PROVIDERS: PCP Family Medicine; Referring Provider Internal Medicine Gastroenterology; Visit Provider Internal Medicine Gastroenterology
DX: R10.9 Unspecified abdominal pain (principal)
CPT/HCPCS: 78264; A9541

== ENCOUNTER → 2023-06-25 | Outpatient (CLI) | payer MEDICAID, SELFPAY ==
[2023-06-27 09:09] LABS: H. PYLORI STOOL AG Negative (Negative)
== END | disposition home or self-care (01) ==
LOC: MTLAB 10:54
PROVIDERS: PCP Family Medicine; Referring Provider Internal Medicine Gastroenterology; Visit Provider Internal Medicine Gastroenterology
DX: A04.8 Other specified bacterial intestinal infections (principal)
CPT/HCPCS: 87338

== ENCOUNTER → 2023-07-09 | Outpatient (CLI) | payer MEDICAID, SELFPAY ==
--- NOTE | 2023-07-09 09:25 | BI_ITS ---
MAMMOGRAPHY - BILATERAL DIAGNOSTIC REASON FOR EXAM: Female, 28 years old. History right breast mass. PERTINENT HISTORY: Non-contributory. TECHNIQUE: Digital bilateral breast alyssia (3D mammographic acquisition) in the CC and MLO projections. 2-D mediolateral oblique (MLO) and craniocaudad (CC) views of both breasts were obtained. CAD: Full Field Digital Mammography with Computer Added Detection was performed. COMPARISON: Comparison is made with prior study dated October 10, 2020. FINDINGS: Breast Composition: The breasts are extremely dense, which lowers the sensitivity of mammography. There are no dominant masses or suspicious calcifications. No other significant abnormalities are identified. There has been no significant change since the prior study. BI/DIAG MAMM W/CAD, BILAT IMPRESSION: Stable bilateral diagnostic mammogram. With the patient''s history of a palpable lump, correlation with ultrasound is recommended. ASSESSMENT CATEGORY: BIRADS Category 0: Incomplete. Need additional imaging evaluation. A letter regarding these results will be sent to the patient by the facility within 30 days. Approximately 10% of breast cancers are not detected by mammography. A normal mammogram should not delay biopsy of a clinically suspicious abnormality. Electronically Signed: Nicholas Okeefe MD at 12:38 EDT ,
--- NOTE | 2023-07-09 09:26 | US_ITS ---
STUDY: ULTRASOUND BREAST - RIGHT REASON FOR EXAM: Female, 28 years old. Palpable lump in the right breast. TECHNIQUE: Axial and longitudinal images of the RIGHT breast were performed with a high resolution ultrasound transducer. # OF IMAGES: 21 COMPARISON: Comparison is made with prior mammogram done earlier in day as well as prior sonogram of the right breast dated October 10, 2020. FINDINGS: RIGHT Breast: There is a 1.1 cm x 1.2 cm x 0.5 cm well-defined hypoechoic solid nodule with focal calcification at the 9:00 position breast at 1 cm from the nipple. There has been essentially no change since prior study. US/Breast Limited Unilateral IMPRESSION: Essentially stable examination. This most likely represents a fibroadenoma. ASSESSMENT CATEGORY: BIRADS Category 2: Benign. A letter regarding these results will be sent to the patient by the facility within 30 days. Electronically Signed: Nicholas Okeefe MD at 13:28 EDT ,
== END | disposition home or self-care (01) ==
LOC: OPBI 09:24
PROVIDERS: PCP Family Medicine; Referring Provider Family Medicine; Visit Provider Family Medicine
DX: R92.8 Other abnormal and inconclusive findings on diagnostic imaging of breast (principal)
CPT/HCPCS: 76642; 77062; 77063; 77066; G0279

== ENCOUNTER → 2024-03-09 | Outpatient (CLI) | payer MEDICAID, SELFPAY ==
[2024-03-09 12:35] LABS: Absolute Lymphocyte Count 1.43 X10^3/uL (0.83-4.51); Absolute Neutrophil Count 1.8 X10^3/uL (2.0-7.7); Basophil# 0.08 X10^3/uL; Eosinophil# 0.35 X10^3/uL; Eosinophils% 8.6 % (0-5); Hematocrit 41.4 % (37-47); Lymphocyte # 1.43 X10^3/ul (0.83-4.51); Mean Corp Hgb Conc 31.4 g/dL (32-36); Mean Corpuscular Hgb 29.7 pg (27.0-32.0); Mean Corpuscular Volume 94.5 fL (81-99); Mean Platelet Vol. 10.5 fl (6.2-12.0); Monocyte# 0.38 X10^3/uL; Monocyte% 9.3 % (0-10); NRBC Flagged by Analyzer 0 % (0-5); Neutrophil # 1.84 X10^3/uL (2.7-7.7); Neutrophil % 45.1 % (47-70); Platelet Count 230 K/mm3 (150-450); RBC Distribution Width CV 13.2 % (11.6-14.6); RBC Distribution Width SD 46.2 fl (35.1-43.9); Red Blood Count 4.38 M/mm3 (4.2-5.4); White Blood Count 4.1 K/mm3 (4.4-11.0)
== END | disposition home or self-care (01) ==
LOC: MFPLAB 10:12
PROVIDERS: Nurse Practitioner Family; PCP Family Medicine; Visit Provider Family Medicine
DX: N92.6 Irregular menstruation, unspecified (principal)
CPT/HCPCS: 36415; 85025

== ENCOUNTER → 2024-06-16 | Outpatient (CLI) | payer MEDICAID, SELFPAY ==
[2024-06-21 14:07] LABS: HPV APTIMA, High Risk Negative (Negative)
== END | disposition home or self-care (01) ==
LOC: LABSPEC 13:27
PROVIDERS: Referring Provider Nurse Practitioner Women's Health; Visit Provider Nurse Practitioner Women's Health
DX: Z12.4 Encounter for screening for malignant neoplasm of cervix (principal)
CPT/HCPCS: 87624; 88175; G0145